=== PATIENT | female | born 1975 | race Caucasian/White ===

== ENCOUNTER 2018-12-19 14:28 | Emergency (ER) | payer SELFPAY ==
[2018-12-19 15:26] LABS: Influenza A Molecular POSITIVE (Negative)
--- NOTE | 2018-12-19 15:39 | UC ---
FLU HPI - HPI Summary HPI Summary: 43-year-old female presents with 5 day history of fever, chills, fatigue, general malaise, headache, body aches, nasal congestion, and occasionally productive cough. She did not receive her flu shot this year. Denies ear pain , sore throat, chest pain, shortness of breath, abdominal pain, nausea, vomiting , or diarrhea. - History of Current Complaint Chief Complaint: UCGeneralIllness Stated Complaint: FLU LIKE SYMPTOMS Hx Obtained From: Patient Pain Intensity: 6 - Allergy/Home Medications Allergies/Adverse Reactions: Allergies Allergy/AdvReac Type Severity Reaction Status Date / Time No Known Allergies Allergy Verified 12/19/18 14:48 PMH/Surg Hx/FS Hx/Imm Hx Previously Healthy: Yes - Denies significant PMH - Surgical History Surgical History: None - Family History Known Family History: Positive: Non-Contributory - Social History Occupation: Employed Full-time Lives: With Family Alcohol Use: None Substance Use Type: None Smoking Status (MU): Former Smoker Review of Systems All Other Systems Reviewed And Are Negative: Yes Constitutional: Positive: Fever, Chills, Fatigue Skin: Negative: Rash Eyes: Negative: Drainage, Eye Redness ENT: Positive: Nasal Discharge, Sinus Congestion, Sinus Pain/Tenderness. Negative: Sore Throat, Ear Ache Respiratory: Positive: Cough. Negative: Shortness Of Breath Cardiovascular: Negative: Palpitations, Chest Pain Gastrointestinal: Negative: Abdominal Pain, Vomiting, Diarrhea, Nausea Genitourinary: Positive: Negative Musculoskeletal: Positive: Negative Neurological: Positive: Headache Is Patient Immunocompromised?: No Physical Exam - Summary Physical Exam Summary: GENERAL APPEARANCE: Well developed, well nourished, alert and cooperative, and appears to be in no acute distress. EYES: Conjunctiva clear. No drainage. Vision is grossly intact. EARS: External auditory canals and tympanic membranes clear, hearing grossly intact. NOSE: Mild-moderate nasal congestion. THROAT: Mild pharyngeal erythema. No tonsilar inflammation, swelling, exudate, or lesions. NECK: Neck supple, non-tender without lymphadenopathy. CARDIAC: Normal S1 and S2. No S3, S4 or murmurs. Rhythm is regular. There is no peripheral edema, cyanosis or pallor. Extremities are warm and well perfused. Capillary refill is less than 2 seconds. LUNGS: Clear to auscultation without rales, rhonchi, wheezing or diminished breath sounds. Loose non-productive cough. ABDOMEN: Positive bowel sounds. Soft, nondistended, nontender. No guarding or rebound. No masses or hepatosplenomegally. MUSKULOSKELETAL: ROM intact to all extremities. No joint erythema or tenderness. Normal muscular development. Normal gait. SKIN: Skin normal color, texture and turgor with no lesions or eruptions. Triage Information Reviewed: Yes Vital Signs: Initial Vital Signs Temp 98.4 F 12/19/18 14:43 Pulse 84 12/19/18 14:43 Resp 18 12/19/18 14:43 BP 98/63 12/19/18 14:43 Pulse Ox 99 12/19/18 14:43 Vital Signs Reviewed: Yes Diagnostics - Laboratory Diagnostic Studies Completed/Ordered: Rapid flu positive Influenza A Flu Course/Dx - Course Course Of Treatment: 43-year-old female presents with 5 day history of fever, chills, fatigue, general malaise, headache, body aches, nasal congestion, and occasionally productive cough. She did not receive her flu shot this year. Denies ear pain, sore throat, chest pain, shortness of breath, abdominal pain, nausea, vomiting, or diarrhea. Afebrile. Vital signs stable. Exam reveals an alert adult female in no acute distress with mild to moderate nasal congestion, mild pharyngeal erythema, clear bilateral breath sounds, loose nonproductive cough, but otherwise unremarkable exam. Rapid flu was positive for influenza A. Recommending symptomatic treatment including Tessalon Perles as needed for cough. She is to follow-up with a primary care provider in 7 days if symptoms do not improve. Anticipatory guidance and warning symptoms are reviewed with the patient. Verbalizes understanding and agrees with plan of care. - Differential Dx/Diagnosis Differential Diagnosis/HQI/PQRI: Bronchitis, Influenza, Pneumonia, Upper Respiratory Infection Provider Diagnosis: Influenza A Discharge - Sign-Out/Discharge Documenting (check all that apply): Patient Departure All imaging exams completed and their final reports reviewed: No Studies - Discharge Plan Condition: Stable Disposition: HOME Prescriptions: Benzonatate CAP* [Tessalon 100 MG CAP*] 100 mg PO TID PRN #30 cap PRN Reason: Cough Patient Education Materials: Influenza (ED) Forms: *Work Release Referrals: No Primary Care Phys,NOPCP [Primary Care Provider] - Additional Instructions: Your rapid flu test in the clinic today was positive for influenza A. Drink plenty of fluids to avoid dehydration especially if you are running any fever. Take over the counter acetaminophen (Tylenol) or ibuprofen (Advil, Motrin) according to directions as needed for pain or fever. Use salt water gargles several times a day if you have a sore throat. Use Tessalon Perles 1 cap every 8 hours as needed for cough. You may also use Chloraseptic spray or Cepacol lonzenges according to directions which contain a numbing medication and can provide some temporary relief from your sore throat. Follow up with your primary care provider in 7 days if symptoms persist. Seek immediate medical attention in the emergency room if you have fever greater than 100.5 F despite taking acetaminophen or ibuprofen, have chest pain , difficulty breathing, are unable to swallow, or have any worsening of symptoms. - Billing Disposition and Condition Condition: STABLE Disposition: Home
== END 2018-12-19 16:10 | disposition home or self-care (01) ==
LOC: UCEAST 14:28
DX: J10.1 Influenza due to other identified influenza virus with other respiratory manifestations (principal); Z87.891 Personal history of nicotine dependence
CPT/HCPCS: 99202; G0463

== ENCOUNTER 2019-10-21 14:46 | Emergency (ER) | payer SELFPAY ==
[2019-10-21] MEDS ORDERED: Ibuprofen TAB* 400 MG PO ONE (15:40)
--- NOTE | 2019-10-21 16:00 | UC ---
Upper Extremity HPI - HPI Summary HPI Summary: Patient is 44 year old female , who present today to the urgent care with right elbow pain. About an hour ago pt slipped on icy steps and fell down 4 steps. Landed on RIGHT elbow when she fell. C/o pain in RIGHT elbow radiating into arm Associated swelling and decreased range of motion at the right elbow. - History of Current Complaint Chief Complaint: UCUpperExtremity Stated Complaint: RIGHT ARM INJURY Time Seen by Provider: 10/21/19 15:50 Hx Obtained From: Patient Hx Last Menstrual Period: 5 years ago Pain Intensity: 10 - Allergies/Home Medications Allergies/Adverse Reactions: Allergies Allergy/AdvReac Type Severity Reaction Status Date / Time No Known Allergies Allergy Verified 10/21/19 15:06 Home Medications: Home Medications NK [No Home Medications Reported] 10/21/19 [History Confirmed 10/21/19] PMH/Surg Hx/FS Hx/Imm Hx - Additional Past Medical History Additional PMH: Past Medical History : None Past Surgical History: No Past History of Procedure Family History : non contributory Social History : No alcohol, former smoker, no drug use. Previously Healthy: Yes - Surgical History Surgical History: None - Family History Known Family History: Positive: Non-Contributory - Social History Alcohol Use: None Substance Use Type: None Smoking Status (MU): Former Smoker Review of Systems All Other Systems Reviewed And Are Negative: Yes Constitutional: Positive: Negative Skin: Positive: Negative Eyes: Positive: Negative ENT: Positive: Negative Respiratory: Positive: Negative Cardiovascular: Positive: Negative Gastrointestinal: Positive: Negative Genitourinary: Positive: Negative Motor: Positive: Negative Neurovascular: Positive: Negative Musculoskeletal: Positive: Arthralgia - right elbow, Decreased ROM - Right elbow, Edema - Right elbow Physical Exam - Summary Physical Exam Summary: Vital Signs Reviewed: Yes A+Ox3, no distress Eyes: Conjunctiva Clear ENT: Hearing grossly normal neck: supple Respiratory: Positive: No respiratory distress, No accessory muscle use Cardiovascular: skin color reflect adequate perfusion Musculoskeletal Exam: TRUJILLO x 4 without difficulty Neurological: Positive: Alert, ambulatory without difficulty Psychological: Positive: Normal Response To Family Skin: Positive: no rash, no ecchymosis Right Elbow: Gen: Patient was healthy appearing, alert and well oriented with an appropriate mood and in no apparent distress. Inspection /Palpation: Bruising and swelling noted on the lateral aspect There is intense tenderness to palpation. .Stability: No instability bilaterally. Strength:5/5 on the right. ROM: Right elbow: Limited and painful range of motion with flexion and extension , inability to fully extend and flexion is painful. Special Tests: Pain on resistance to active wrist extension and flexion .Tinel' s sign is negative on the right. Reflexes: DTR's are 2+ bilaterally. Coordination normal Right forearm: There is no swelling, no tenderness to palpation. Right wrist: No swelling, no tenderness to palpation. Full range of motion Right shoulder: Pain-free range of motion of the right shoulder noted Triage Information Reviewed: Yes Vital Signs: Initial Vital Signs Temp 98.7 F 10/21/19 15:08 Pulse 77 10/21/19 15:08 Resp 16 10/21/19 15:08 BP 95/54 10/21/19 15:08 Pulse Ox 98 10/21/19 15:08 Vital Signs Reviewed: Yes Diagnostics - Radiology No standard instances Radiology Interpretation Completed By: Radiologist - X-ray of right elbow: FINDINGS: There is a small effusion. The bone mineralization is within normal limits. No fracture is identified. Anatomic alignment is maintained. The joint spaces are preserved. IMPRESSION: Short-term follow-up imaging is recommended to rule out occult fracture in the context of a small effusion.. Upper Extremity Course/Dx - Course Course Of Treatment: During the visit today, we obtained right elbow x-ray: FINDINGS: There is a small effusion. The bone mineralization is within normal limits. No fracture is identified. Anatomic alignment is maintained. The joint spaces are preserved. IMPRESSION: Short-term follow-up imaging is recommended to rule out occult fracture in the context of a small effusion. We discussed the findings and further plan. She will control pain, start gentle ROM and follow up with orthopedics. Patient expressed understanding . - Differential Dx/Diagnosis Provider Diagnosis: Elbow pain, right Discharge ED - Sign-Out/Discharge Documenting (check all that apply): Patient Departure All imaging exams completed and their final reports reviewed: Yes - Discharge Plan Condition: Stable Disposition: HOME Patient Education Materials: Contusion in Adults (ED) Referrals: No Primary Care Phys,NOPCP [Primary Care Provider] - Lorenzo Lara MD [Medical Doctor] - 2 Days Additional Instructions: Your xrays show effusion and possibility of occult fracture cannot be ruled out . Pain control as needed with ibuprofen 600 mg 3 times a day with food. Ice 15 minutes at a time, 3-4 times a day Start gentle range of motion exercises as tolerated Continue using the sling. Follow up with orthopedics within 2-3 days for reevaluation Return to Urgent care / ER if symptoms get worse. - Billing Disposition and Condition Condition: STABLE Disposition: Home
== END 2019-10-21 16:52 | disposition home or self-care (01) ==
LOC: UCCORT 14:46
DX: M25.521 Pain in right elbow (principal); Z87.891 Personal history of nicotine dependence
CPT/HCPCS: 99213; A9270-GY; G0463